=== PATIENT | male | born 1970 | race Hispanic/Latino ===

== ENCOUNTER 2023-06-13 06:24 | Day surgery (SDC) | payer BC ==
[2023-06-11 09:50] VITALS: BP 152/83; PULSE 73; RESP 16
[2023-06-11 09:53] LABS: BASOPHILS # (AUTO) 0.07 K/uL (0.00-0.20); BASOPHILS % (AUTO) 1.2 % (0.0-5.0); EOSINOPHILS # (AUTO) 0.04 K/uL (0.00-0.70); EOSINOPHILS % (AUTO) 0.7 % (0.0-8.0); HEMATOCRIT 49.1 % (42-54); IMMATURE GRANULOCYTE ABSOLUTE 0.04 K/uL (0-1); LYMPHOCYTES # (AUTO) 1.3 K/uL (1.0-4.8); LYMPHOCYTES % (AUTO) 21.7 % (21.0-51.0); MEAN CORPUSCULAR HEMOGLOBIN 30.1 pg (27.0-33.0); MEAN CORPUSCULAR HGB CONC 33.6 g/dL (32.0-36.0); MEAN CORPUSCULAR VOLUME 89.6 fL (79-99); MONOCYTES # (AUTO) 0.6 K/uL (0.1-1.0); MONOCYTES % (AUTO) 10.6 % (3.0-13.0); NEUTROPHILS # (AUTO) 3.9 K/uL (1.8-7.7); NEUTROPHILS % (AUTO) 65.1 % (40.0-77.0); PLATELET COUNT (AUTO) 208 K/uL (130-400); RED BLOOD CELL COUNT(AUTO) 5.48 MIL/uL (4.50-6.20); RED CELL DISTRIBUTION WIDTH 13.3 % (11.0-15.5); WHITE BLOOD COUNT (AUTO) 5.9 K/uL (4.8-10.8)
[2023-06-11 10:02] LABS: CREATININE 0.9 mg/dL (0.5-1.3); POTASSIUM 4.1 mmol/L (3.5-5.1)
[2023-06-11 10:03] LABS: INR <= 0.93 (0.85-1.15); PROTHROMBIN TIME 10.7 SEC (9.6-11.6)
[2023-06-11 10:05] LABS: PARTIAL THROMBOPLASTIN TIME 25.6 SEC (26.3-35.5)
[2023-06-11 10:17] LABS: B-TYPE NATRIURETIC PEPTIDE 26 pg/mL (0-100)
[~2023-06-13] VITALS: Ht 177.8 cm; Wt 126.1 kg
[2023-06-13] VITALS (10 sets, daily range): BP systolic 129–152; BP diastolic 71–92; PULSE 57–73; RESP 11–19
[~2023-06-13 06:24] MED LIST: ASPI-1005 PO; ENAL-89 PO; FINA5TAB41 PO; INDA1.255 PO; METO-408 PO; OMEP40CA21 PO; VITAMIN D PO
[2023-06-13] MEDS: 0.9%NACL 1000ML 1,000 ML IV ONE (07:08)
[2023-06-13] MEDS ORDERED: FENTANYL CITRATE PF 50 MCG/1 ML 2ML VIAL ONE (11:10)
[2023-06-13] MEDS ORDERED: LIDOCAINE HCL 400MG/20ML VIAL ONE (11:10)
[2023-06-13] MEDS ORDERED: IOHEXOL 350 MG/ML 100ML INFUS..BTL IV ONE (11:11)
[2023-06-13] MEDS ORDERED: HEPARIN 10,000 UNIT/10ML (1,000 UNIT/ML) VIAL ONE (11:11)
[2023-06-13] MEDS ORDERED: NICARDIPINE 25MG INJ IV ONE (11:11)
[2023-06-13] MEDS ORDERED: MIDAZOLAM HCL 1 MG/ML 2ML VIAL ONE ×2 (11:11→12:57)
[2023-06-13] MEDS ORDERED: NITROGLYCERIN 50MG VIAL ONE (11:12)
[2023-06-13] MEDS ORDERED: GLUCAGON 1MG KIT 1 MG ML IM PRN (14:00)
[2023-06-13] MEDS ORDERED: 0.9%NACL 1000ML 1,000 ML IV SCH (14:00)
[2023-06-13] MEDS ORDERED: DEXTROSE 50%-WATER 50 ML DISP.SYRIN IV PRN (14:00)
[2023-06-13] MEDS ORDERED: ATOR10 PO (16:43)
== END 2023-06-13 17:10 | disposition home or self-care (01) ==
LOC: DAH 06:24
PROVIDERS: ATTEND Internal Medicine Cardiovascular Disease
DX: R94.30 Abnormal result of cardiovascular function study, unspecified (principal); I25.119 Atherosclerotic heart disease of native coronary artery with unspecified angina pectoris; I10 Essential (primary) hypertension; I45.10 Unspecified right bundle-branch block; R94.31 Abnormal electrocardiogram [ECG] [EKG]; R07.9 Chest pain, unspecified; R00.1 Bradycardia, unspecified; Z83.79 Family history of other diseases of the digestive system; Z82.49 Family history of ischemic heart disease and other diseases of the circulatory system; Z82.5 Family history of asthma and other chronic lower respiratory diseases; Z83.3 Family history of diabetes mellitus; Z79.82 Long term (current) use of aspirin; Z79.899 Other long term (current) drug therapy
CPT/HCPCS: 80048; 83880; 85025; 85610; 85730; 36415; 71045; 93005; 93458; C1887 ×2; C1769 ×2; C1894 ×3; C1760; A4649; J3010; J3490 ×3; J7030; J1644 ×3; J2250 ×2; Q9967; A4215; A4222; A4221; A4663; A4216; A4606; Q9965; A4223 ×3; 99156; 99157